=== PATIENT | male | born 1945 | race Hispanic/Latino ===

== ENCOUNTER 2017-02-16 15:03 | Inpatient (IN) | payer OTHER ==
[~2017-02-16] VITALS: Ht 152.4 cm; Wt 86.2 kg
[~2017-02-16 15:03] MED LIST: AMLODIPINE BESY10 M1 PO; AMOX-CLAV 875-1 EACH PO; BENZONATATE100 M1 PO; CARVEDILOL6.25 M1 PO; DULERA 200 MCG/13 GM INH; LEVOTHYROXINE125 MCG PO; LISINOPRIL-HCT1 EAC1 PO; LOVASTATIN40 M1 PO; METFORMIN HCL500 M4 PO; OMEPRAZOLE40 M1 PO; PREDNISONE10 M2 PO; PREDNISONE5 M1 PO; PROAIR HFA8.5 GM PO
--- NOTE | 2017-02-16 15:13 | NUR ---
EKG COMPLETED AND PT SENT BACK TO WAITING ROOM
--- NOTE | 2017-02-16 15:30 | NUR ---
RECEIVED 71 YO MALE WITH FAMILY WITH HX OF ASTHMA C/O DIFFICULTY BREATHING, STARTED YESTERDAY WITH CHEST PAIN WITH COUGHING ONLY. PT ALSO REPORTS ABDOMIN HURTS WITH COUGHING. MILD EXP WHEEZES AUSCULTATED. 02 SATS 94% ON ROOM AIR. EKG DONE PRIOR TO TRIAGE. NO ACUTE DISTRESS NOTED.
--- NOTE | 2017-02-16 15:34 | NUR ---
PT ASSIST TO RM WITH FAMILY MEMBER AT BEDSIDE. PT CHANGED INTO HOSPITAL ATTIRE. PT PLACED ON MONITOR.
--- NOTE | 2017-02-16 15:51 | ED DYSPNEA/ASTHMA COMPLAINT ---
History of Present Illness General Chief Complaint: Dyspnea (COPD, CHF, Other) Stated Complaint: SOB Source: patient Exam Limitations: no limitations Allergies Coded Allergies: No Known Allergies (02/28/16) Reconcile Medications Albuterol Sulfate (Proair Hfa) 90 MCG HFA.AER.AD 2 PUF INH PRN ASTHMA ( Reported) Albuterol Sulfate (Proventil Hfa) 90 MCG HFA.AER.AD 2 PUF INH Q4 COPD Amlodipine Besylate 10 MG TABLET 1 TAB PO DAILY HTN (Reported) Ascorbic Acid (Vitamin C) 100 MG TABLET 0.5 TAB PO DAILY SUPPLEMENT (Reported ) Aspirin (Ecotrin*) 81 MG TABLET.DR 1 TAB PO DAILY HEART/BLOOD (Reported) Azithromycin 250 MG TABLET 250 MG PO DAILY BRONCHITIS TAKE ONE TABLET ON 02/20/17 Budesonide/Formoterol Fumarate (Symbicort 160-4.5 Mcg Inhaler) 160 MCG-4.5 MCG/ ACTUATION HFA.AER.AD 2 PUF INH BID COPD Calcium Carbonate/Vitamin D3 (Calcium 500 + D Tablet) (Unknown Strength) TABLET (Unknown Dose) PO DAILY SUPPLEMENT (Reported) Carvedilol 6.25 MG TABLET 1 TAB PO BID HEART (Reported) Colesevelam Hydrochloride (Welchol) 625 MG TABLET 1 TAB PO TID CHOLESTEROL ( Reported) Ipratropium/Albuterol Sulfate (Iprat-Albut 0.5-3(2.5) MG/3 Ml) 0.5 MG-3 MG (2.5 MG BASE)/3 ML AMPUL.NEB 2.5 ML INH TID COPD Lactobacillus Acidophilus (Probiotic) 10 BILLION CELL CAPSULE 1 CAP PO DAILY PROBIOTIC (Reported) Levothyroxine Sodium 125 MCG TABLET 1 TAB PO DAILY THYROID PROBLEMS (Reported ) Lisinopril/Hydrochlorothiazide (Lisinopril-Hctz 20-25 MG Tab) 1 EACH TABLET 1 TAB PO DAILY HEART HEALTH (Reported) Lovastatin 40 MG TABLET 1 TAB PO DAILY HIGH CHOLESTEROL (Reported) Metformin HCl 500 MG TABLET 1 TAB PO BID DM (Reported) Mometasone Furoate (Nasonex) 50 MCG SPRAY.PUMP 2 SPRAY NASB PRN ALLERGIES/ NASAL CONGESTION (Reported) Mometasone/Formoterol (Dulera 100 Mcg/5 Mcg Inhaler) 100 MCG-5 MCG/ACTUATION HFA.AER.AD 2 PUF INH PRN ASTHMA (Reported) Etoile-3 Fatty Acids (Etoile-3) (Unknown Strength) CAPSULE (Unknown Dose) PO DAILY SUPPLEMENT (Reported) Omeprazole 40 MG CAPSULE. 1 TAB PO DAILY ACID REFLEX (Reported) Prednisone 20 MG TABLET 40 MG PO DAILY BRONCHITIS STARTING THIS MEDICAITON 02/20/17 TAKE TWO TABLETS BY MOUTH DAILY FOR 3 MORE DAYS THEN STOP Triage Note: RECEIVED 71 YO MALE WITH FAMILY WITH HX OF ASTHMA C/O DIFFICULTY BREATHING, STARTED YESTERDAY WITH CHEST PAIN WITH COUGHING ONLY. PT ALSO REPORTS ABDOMIN HURTS WITH COUGHING. MILD EXP WHEEZES AUSCULTATED. 02 SATS 93% ON ROOM AIR. EKG DONE PRIOR TO TRIAGE. NO ACUTE DISTRESS NOTED. Triage Nurses Notes Reviewed? yes HPI: This patient is a 71-year-old male with a past medical history including asthma who presented to the emergency department today for evaluation of difficulty breathing. The patient was accompanied by a family member who translated for him at his primary language is not Panamanian. The patient reported that since yesterday he has had worsening difficulty breathing. He reported that he has had a cough intermittently productive of sputum. He reported that when he does cough he feels pain and his sides. He denied any chest pain. Patient reported that he has had chills, but denied any fevers. The patient denied any jaw pain, arm pain, numbness or tingling in his extremities, back pain, nausea, vomiting, abdominal pain, or any other associated symptoms. This patient has been using his DULERA and pro-air inhalers without any relief of his symptoms. (DIDIER SHAY,WES) Vital Signs & Intake/Output Vital Signs & Intake/Output Vital Signs Date Time Temp Pulse Resp B/P Pulse O2 O2 Flow FiO2 Ox Delivery Rate 02/16 1804 78 14 160/90 95 Nasal 2.0L Cannula 02/16 1700 96 Nasal 2.0L Cannula 02/16 1632 94 Nasal 2.0L Cannula 02/16 1527 99.1 87 20 150/84 93 Room Air Past History Travel History Traveled to [place] past 21 day No Medical History Any Pertinent Medical History? see below for history Neurological: NONE EENT: NONE Cardiovascular: hypertension, hyperlipidemia Respiratory: asthma Gastrointestinal: NONE Hepatic: NONE Renal: NONE Musculoskeletal: NONE Psychiatric: NONE Endocrine: diabetes Blood Disorders: NONE Cancer(s): NONE History of MRSA: No History of VRE: No History of CDIFF: No Pneumonia Vaccine: 08/26/14 Influenza Vaccine: 08/26/15 Surgical History Surgical History: N Psychosocial History Who do you live with Spouse Services at Home None What is your primary language Greenlandic Tobacco Use: Never used Family History Family History, If Any: Relation not specified for: *No pertinent family history Hx Contributory? No (WES VELÁSQUEZ PA-C) Review of Systems Review of Systems Constitutional: Reports: see HPI. EENTM: Reports: no symptoms. Respiratory: Reports: see HPI. Cardiovascular: Reports: no symptoms. GI: Reports: no symptoms. Genitourinary: Reports: no symptoms. Musculoskeletal: Reports: see HPI. Skin: Reports: no symptoms. Neurological/Psychological: Reports: no symptoms. All Other Systems: Reviewed and Negative (WES VELÁSQUEZ PA-C) Physical Exam Physical Exam Respiratory: CHEST NONTENDER. qUIET RESPIRATION. nO WHEEZES, RALES, OR RHONCHI. nO STRIDOR. nO ACCESSORY MUSCLE USE. nO RESPIRATORY DISTRESS Comments: Well-developed well-nourished person in no acute distress HEENT: Normal EENT exam, moist mucous membranes PERRLA bilaterally Neck: Supple, no lymphadenopathy Back: Normal gait. Normal inspection Cardiovascular: Regular rate and rhythm with no murmurs, rubs, or gallops. No JVD or carotid bruits Abdomen: Soft, nontender, and nondistended. No rebound or guarding. No organomegaly. No peritoneal signs Extremity: No edema, no calf tenderness to palpation, normal and equal pulses. Neuro: Alert oriented x3, cranial nerves II through XII grossly intact. Skin: No appreciable rash on exposed skin, skin is warm and dry. Psych: Mood and affect is normal Core Measures ACS in differential dx? Yes Severe Sepsis Present: No Septic Shock Present: No (WES VELÁSQUEZ PA-C) Progress Differential Diagnosis: asthma, AMI, bronchitis, costochondritis, CHF, COPD, musculoskeletal pain, pericarditis, pulmonary embolism, pneumonia, unstable angina Plan of Care: Orders Procedure Date/time Status Patient Data 02/16 1832 Active B-TYPE NATRIURETIC PEP (BNP) 02/16 1607 Complete ARTERIAL BLOOD GAS (GEN) 02/16 1552 Complete TROPONIN LEVEL 02/16 1552 Complete MAGNESIUM 02/16 1552 Complete COMPREHENSIVE METABOLIC PANEL 02/16 1552 Complete CBC WITHOUT DIFFERENTIAL 02/16 1552 Complete EKG 02/16 1504 Active Laboratory Tests 02/16/17 1715: pH 7.46 H, pCO2 38, pO2 68 L, HCO3 26, ABG O2 Sat (Measured) 93.0 L, P-50 ( Temp Corrected) N, Carboxyhemoglobin 0.6 L, O2 Concentration % 2LPM, O2 Delivery Method NC, Phlebotomy Draw Site RIGHT BRACHIAL 02/16/17 1607: Anion Gap 12, Estimated GFR > 60, BUN/Creatinine Ratio 13.0, Glucose 120 H, Calcium 10.0, Magnesium 1.8, Total Bilirubin 0.9, AST 30, ALT 51, Alkaline Phosphatase 64, Troponin I < 0.01, Cem-W-Onmasepryda Pept 52.7, Total Protein 7.4, Albumin 4.7, Globulin 2.7, Albumin/Globulin Ratio 1.7, CBC w Diff NO MAN DIFF REQ, RBC 5.55, MCV 83.9, MCH 27.1, RDW 14.6 H, MPV 7.6, Gran % 68.9, Lymphocytes % 13.5 L, Monocytes % 10.4 H, Eosinophils % 6.6 H, Basophils % 0.6, Absolute Granulocytes 7.1 H, Absolute Lymphocytes 1.4, Absolute Monocytes 1.1 H, Absolute Eosinophils 0.7, Absolute Basophils 0.1, PUBS MCHC 32.3 L 02/16/17 1555: Ewn-O-Yjtycpangyx Pept Cancelled Diagnostic Imaging: Viewed by Me: Radiology Read. Discussed w/RAD: Radiology Read. CXR Impression: PATIENT: JEANNIE NICHOLSON PRESENT AGE: 71 PATIENT ACCOUNT NO: [id number] : 44 LOCATION: [facility] ORDERING PHYSICIAN: WES VELÁSQUEZ PA-C SERVICE DATE: 02/16/17 EXAM TYPE: RAD - XRY-CHEST XRAY, PA AND LATERAL EXAMINATION: XR CHEST CLINICAL INFORMATION: Pneumonia shortness of breath COMPARISON: February 2016 TECHNIQUE: 2 views of the chest were obtained. FINDINGS: No significant abnormality is noted involving the heart, lungs, mediastinum, bony thorax or soft tissues. IMPRESSION : Unremarkable examination. DICTATED BY: MARILYNN CRUZ MD DATE/TIME DICTATED:02/16/171721 HOT ROLL LAMINATOR:LENY DATE/TIME TRANSCRIBED:1721 CONFIDENTIAL, DO NOT COPY WITHOUT APPROPRIATE AUTHORIZATION. < Electronically signed in Other Vendor System> SIGNED BY: MARILYNN CRUZ MD 02/16/17 8462 Initial ED EKG: normal axis, normal intervals, SINUS TACHYCARDIA, 90 BPM, st DEPRESSIONS IN LEADS 2 AND 3 Comments: 02/16/2017 5:47:02 PM: I was at the patient's bedside for reevaluation. He is currently resting comfortably on the stretcher. He is approximately 96% on 2 L of oxygen. This patient is not on oxygen at home. He is about 93 or 92% on room air. Unremarkable chest x-ray with no evidence of small airway disease or pneumonia. No increase in white blood cell count. This patient reported that he feels slightly better after the DuoNeb treatment. We will ambulate this patient off oxygen to check his oxygen saturation. 02/16/2017 6:00:18 PM: On ambulation, this patient drops to 89% on room air. Dr. Meier evaluated this patient [id number]. He will be admitted for hypoxia. (DIDIER SHAY,WES) Departure Departure Disposition: STILL A PATIENT Condition: Stable Clinical Impression Primary Impression: Hypoxia Referrals: MULU BLANCO MD (PCP/Family) Departure Forms: Customer Survey General Discharge Information Prescriptions: Current Visit Scripts Prednisone 40 MG PO DAILY #6 TAB STARTING THIS MEDICAITON 02/20/17 TAKE TWO TABLETS BY MOUTH DAILY FOR 3 MORE DAYS THEN STOP Budesonide/Formoterol Fumarate (Symbicort 160-4.5 Mcg Inhaler) 2 PUF INH BID #1 INHAL Albuterol Sulfate (Proventil Hfa) 2 PUF INH Q4 #1 INHAL Azithromycin 250 MG PO DAILY #1 TAB TAKE ONE TABLET ON 02/20/17 Ipratropium/Albuterol Sulfate (Iprat-Albut 0.5-3(2.5) MG/3 Ml) 2.5 ML INH TID #50 VIAL Admission Note Spoke With: VALENTINA ESCOBEDO,KAYLYN Viveros Documentation of Exam: Documentation of any treatments & extenuating circumstances including Concerns Regarding Discharge (functional status, medication knowledge or non-compliance, living conditions, etc.) that warrant an admission rather than observation: [ This patient is a 71 year old male with a past medical history including asthma and diabetes who presented for shortness of breath. 93% on room air. 89% on room air with ambulation. Not on oxygen at home. This patient should be admitted to general medicine for oxygen therapy, serial breathing treatments, trend labs, pulmonology consultation, and close monitoring. Premature discharge could prove medically harmful.] (WES VELÁSQUEZ PA-C) PA/TORCH BRAZER Co-Sign Statement Statement: ED Attending supervision documentation- [x] I saw and evaluated the patient. I have also reviewed all the pertinent lab results and diagnostic results. I agree with the findings and the plan of care as documented in the PA's/TORCH BRAZER's documentation. [] I have reviewed the ED Record and agree with the PA's/TORCH BRAZER's documentation. [] Additions or exceptions (if any) to the PAs/TORCH BRAZER's note and plan are summarized below: [] (YAQUELIN AHUJA,MERCY Mazariegos) Critical Care Note Critical Care Note Critical Care Time: 30-74 min (DIDIER SHAY,WES)
--- NOTE | 2017-02-16 16:01 | NUR ---
PLACED PT ON 2L/NC PER GONZALEZ,PA SITTING UPRIGHT SATS 94%
--- NOTE | 2017-02-16 16:11 | NUR ---
LABS DRAWN AND SENT SST, LAV, BLUE, LAWSON DRAWN AND SENT TO LAB
[2017-02-16 16:18] LABS: ABSOLUTE BASOPHIL COUNT 0.1 /CUMM (0.0-0.2); ABSOLUTE EOSINOPHIL COUNT 0.7 /CUMM (0.0-0.7); ABSOLUTE GRANULOCYTE CT 7.1 /CUMM (1.4-6.5); ABSOLUTE LYMPH COUNT 1.4 /CUMM (1.2-3.4); ABSOLUTE MONOCYTE COUNT 1.1 /CUMM (0.10-0.60); BASOPHIL % 0.6 % (0.0-2.0); EOSINOPHIL % 6.6 % (0-5); GRANULOCYTE % 68.9 % (42.2-75.2); HEMATOCRIT 46.6 % (42-52); MEAN CORPUSCULAR HGB 27.1 PG (27.0-31.0); MEAN CORPUSCULAR HGB CONC 32.3 G/DL (33.0-37.0); MEAN CORPUSCULAR VOLUME 83.9 FL (80.0-94.0); MEAN PLATELET VOLUME 7.6 FL (7.4-10.4); PLATELET COUNT 258 /CUMM (130-400); RBC DISTRIBUTION WIDTH 14.6 % (11.5-14.5); RED BLOOD CELL CT 5.55 /CUMM (4.70-6.10); WHITE BLOOD CELL COUNT 10.2 /CUMM (4.8-10.8)
--- NOTE | 2017-02-16 16:30 | NUR ---
RESPIRATORY AT BEDSIDE DOINGF BREATHING TX AND ABG
[2017-02-16] MEDS ORDERED: ASPIRIN EC81 M1 PO (16:51)
[2017-02-16] MEDS ORDERED: WELCHOL625 MG PO (16:51)
[2017-02-16] MEDS ORDERED: METFORMIN HCL500 M3 PO (16:54)
[2017-02-16] MEDS ORDERED: PROAIR HFA8.5 GM INH (16:54)
[2017-02-16] MEDS ORDERED: DULERA 100 MCG/13 GM INH (16:55)
[2017-02-16] MEDS ORDERED: NASONEX17 GM NASB (16:57)
[2017-02-16] MEDS ORDERED: VITAMIN C500 M6 PO (16:58)
[2017-02-16] MEDS ORDERED: BETA CAROT10000 UNIT PO (16:58)
[2017-02-16] MEDS ORDERED: OMEGA-31000 M1 PO (16:59)
[2017-02-16] MEDS ORDERED: PROBIOTIC1 EACH PO (16:59)
[2017-02-16] MEDS ORDERED: CALCIUM 500 +1 EAC5 PO (16:59)
--- NOTE | 2017-02-16 17:27 | RADIOLOGY REPORT ---
EXAMINATION: XR CHEST CLINICAL INFORMATION: Pneumonia shortness of breath COMPARISON: February 2016 TECHNIQUE: 2 views of the chest were obtained. FINDINGS: No significant abnormality is noted involving the heart, lungs, mediastinum, bony thorax or soft tissues. IMPRESSION: Unremarkable examination.
--- NOTE | 2017-02-16 17:57 | NUR ---
AMBULATED DOWN HALLWAY ON ROOM AIR SATS STAYED 89%TO 90%, PLACED BACK ON 2 LITERS O2
--- NOTE | 2017-02-16 18:03 | NUR ---
AMBULATED DOWN NICHOLSON WITH SATS IN 89% TO 90% ON ROOM AIR
--- NOTE | 2017-02-16 19:13 | NUR ---
PT GOING TO ROOM 237.
--- NOTE | 2017-02-16 19:25 | NUR ---
REPORT GIVEN TO NURSE AND TRANSPORT CALLED
--- NOTE | 2017-02-16 20:00 | NUR ---
NURSING NOTE: PT ARRIVED TO 2NA VIA STRETCHER @ 1940. PT ALERT, CALM, AND COOPERATIVE. PRIMARILY CROATIAN SPEAKING. FAMILY @ BEDSIDE. PT ORIENTED TO STAFF, ROOM, AND CALL DINERO. ADMISSION ASSESSMENT COMPLETED. PT REMAINS ON 2L NC. RN WILL COTNINUE TO MONITOR.
--- NOTE | 2017-02-16 20:05 | PN- Att Addend ---
Attending Addendum Attending Brief Note This is a gentleman with obesity, hypertension, diabetes, prostate history suggestive of asthma with COPD, hyperlipidemia, hypothyroidism, BPH, comes into the hospital with increasing cough wheezing shortness of breath. Patient apparently was in his usual state of health and was noted to be coughing in the recent past. The patient was accompanied by a family member translated for him as he does not speak Indonesian. He does have some yellow-green sputum. He denies any chest pain. Patient did not have any chills see denied any jaw pain. Patient has been using his inhalers without any relief. In the emergency room he was noted to be slightly hypoxemic and wheezing hence he was admitted to the hospital. Past History Travel History Traveled to [place] past 21 day No Medical History Any Pertinent Medical History? see below for history Neurological: NONE EENT: NONE Cardiovascular: hypertension, hyperlipidemia Respiratory: asthma Gastrointestinal: NONE Hepatic: NONE Renal: NONE Musculoskeletal: NONE Psychiatric: NONE Endocrine: diabetes Blood Disorders: NONE Cancer(s): NONE History of MRSA: No History of VRE: No History of CDIFF: No Pneumonia Vaccine: 08/26/14 Influenza Vaccine: 08/26/15 Surgical History Surgical History: N Psychosocial History Who do you live with Spouse Services at Home None What is your primary language Slovak Tobacco Use: Never used Family History Family History, If Any: Relation not specified for: *No pertinent family history Hx Contributory? No (WES VELÁSQUEZ PA-C) Review of Systems Review of Systems Constitutional: Reports: see HPI. EENTM: Reports: no symptoms. Respiratory: Reports: see HPI. Cardiovascular: Reports: no symptoms. GI: Reports: no symptoms. Genitourinary: Reports: no symptoms. Musculoskeletal: Reports: see HPI. Skin: Reports: no symptoms. Neurological/Psychological: Reports: no symptoms. All Other Systems: Reviewed and Negative (WES VELÁSQUEZ PA-C) Physical Exam Physical Exam Respiratory: CHEST NONTENDER. qUIET RESPIRATION. nO WHEEZES, RALES, OR RHONCHI. nO STRIDOR. nO ACCESSORY MUSCLE USE. nO RESPIRATORY DISTRESS Comments: Well-developed well-nourished person in no acute distress HEENT: Normal EENT exam, moist mucous membranes PERRLA bilaterally Neck: Supple, no lymphadenopathy Back: Normal gait. Normal inspection Cardiovascular: Regular rate and rhythm with no murmurs, rubs, or gallops. No JVD or carotid bruits Abdomen: Soft, nontender, and nondistended. No rebound or guarding. No organomegaly. No peritoneal signs Extremity: No edema, no calf tenderness to palpation, normal and equal pulses. Neuro: Alert oriented x3, cranial nerves II through XII grossly intact. Skin: No appreciable rash on exposed skin, skin is warm and dry. Psych: Mood and affect is normal Current Medications Sig/Daniel Start time Last Medication Dose Route Stop Time Status Admin Albuterol Sulfate 3 ML ONCE ONE 02/16 1600 DC 02/16 INH 02/16 1601 1600 Ipratropium [place] 2.5 ML ONCE ONE 02/16 1600 DC 02/16 INH 02/16 1601 1600 Laboratory Tests 02/16 02/16 1715 1607 Blood Gas pH (7.35 - 7.45 PH) 7.46 H pCO2 (35 - 45 TORR) 38 pO2 (80 - 100 TORR) 68 L HCO3 (21 - 28 MEQ/L) 26 ABG O2 Sat (Measured) (>96.0 %) 93.0 L P-50 (Temp Corrected) N Carboxyhemoglobin (1.5 - 5.0 %) 0.6 L O2 Concentration % 2LPM O2 Delivery Method NC Chemistry Sodium (137 - 145 mmol/L) 131 L Potassium (3.5 - 5.1 mmol/L) 3.9 Chloride (98 - 107 mmol/L) 92 L Carbon Dioxide (22 - 30 mmol/L) 27 Anion Gap (5 - 16) 12 BUN (9 - 20 mg/dL) 13 Creatinine (0.7 - 1.2 mg/dL) 1.0 Estimated GFR (>60 ml/min) > 60 BUN/Creatinine Ratio (7 - 25 %) 13.0 Glucose (65 - 99 mg/dL) 120 H Calcium (8.4 - 10.2 mg/dL) 10.0 Magnesium (1.6 - 2.3 mg/dL) 1.8 Total Bilirubin (0.2 - 1.3 mg/dL) 0.9 AST (17 - 59 U/L) 30 ALT (21 - 72 U/L) 51 Alkaline Phosphatase (< 127 U/L) 64 Troponin I (<0.11 ng/ml) < 0.01 Yny-L-Pgankvjgslt Pept (<125 pg/mL) 52.7 Total Protein (6.3 - 8.2 g/dL) 7.4 Albumin (3.5 - 5.0 g/dL) 4.7 Globulin (1.9 - 4.2 gm/dL) 2.7 Albumin/Globulin Ratio (1.1 - 2.2 %) 1.7 Hematology CBC w Diff NO MAN DIFF REQ WBC (4.8 - 10.8 /CUMM) 10.2 RBC (4.70 - 6.10 /CUMM) 5.55 Hgb (14.0 - 18.0 G/DL) 15.1 Hct (42 - 52 %) 46.6 MCV (80.0 - 94.0 FL) 83.9 MCH (27.0 - 31.0 PG) 27.1 RDW (11.5 - 14.5 %) 14.6 H Plt Count (130 - 400 /CUMM) 258 MPV (7.4 - 10.4 FL) 7.6 Gran % (42.2 - 75.2 %) 68.9 Lymphocytes % (20.5 - 51.1 %) 13.5 L Monocytes % (1.7 - 9.3 %) 10.4 H Eosinophils % (0 - 5 %) 6.6 H Basophils % (0.0 - 2.0 %) 0.6 Absolute Granulocytes (1.4 - 6.5 /CUMM) 7.1 H Absolute Lymphocytes (1.2 - 3.4 /CUMM) 1.4 Absolute Monocytes (0.10 - 0.60 /CUMM) 1.1 H Absolute Eosinophils (0.0 - 0.7 /CUMM) 0.7 Absolute Basophils (0.0 - 0.2 /CUMM) 0.1 PUBS MCHC (33.0 - 37.0 G/DL) 32.3 L Miscellaneous Phlebotomy Draw Site RIGHT BRACHIAL 02/16 1555 Chemistry Mxj-O-Wanothxpdxi Pept Cancelled Vital Signs Date Time Temp Pulse Resp B/P Pulse O2 O2 Flow FiO2 Ox Delivery Rate 02/16 1804 78 14 160/90 95 Nasal 2.0L Cannula 02/16 1700 96 Nasal 2.0L Cannula 02/16 1632 94 Nasal 2.0L Cannula 02/16 1527 99.1 87 20 150/84 93 Room Air IMPRESSION This is a gentleman with multiple medical problems with hypertension hyperlipidemia diabetes hypothyroidism BPH now comes in with Cough wheezing shortness of breath suggestive of acute asthma exacerbation. Patient probably does have COPD as well. He has mild hypoxemia and minimal exertion probably related to significant pulmonary hypertension and ongoing bronchospasm Signs and symptoms suggestive of obstructive sleep apnea with active snoring at night with daytime sleepiness. Patient however is not a CO2 retainer Diabetes, hypertension, hyperlipidemia and hypothyroidism on appropriate supplementation therapy Trace edema lower extremity rule out other causes of hypoxemia. Hyponatremia which appears to be new onset we will watch. RECOMMENDATION admit him to the hospital Continue most of his outpatient medications Start him on prednisone 60 mg daily and wean down Nebulizer therapy around the clock Change lisinopril to losartan Azithromycin by mouth Patient would need an outpatient sleep study Watch his sodium Repeat chest x-ray in the next 48 hours
--- NOTE | 2017-02-16 20:06 | Admission Certification ---
Admission Certification Certification Statement - As attending physician, I certify that at the time of - admission, based on clinical presentation, severity of - symptoms, need for further diagnostic testing and - therapeutic interventions, and risk of adverse outcomes - without in-hospital treatment, in my clinical assessment, - this patient requires an acute hospital stay for a minimum - of two nights or longer. I have also considered psychsocial - factors such as support system, advanced age, financial - issues, cognitive issues, and failed out-patient treatments, - past re-admission history, safety of patient, and lack of - compliance as applicable. Specific rationale supporting this admission is: acute asthma and copd exacerbation
[2017-02-16 20:25] VITALS: BP 132/80
[2017-02-16] MEDS ORDERED: VITAMIN C100 M2 PO (20:33)
--- NOTE | 2017-02-16 20:55 | History & Physical ---
See Addendum ANDREW ESCOBEDO,NOHEMI 02/16/172053: General Information and HPI MD Statement: I have seen and personally examined JEANNIE NICHOLSON and documented this H& P. The patient is a 71 year old M who presented with a patient stated chief complaint of []. Source of Information: patient, family, EMS Exam Limitations: language barrier History of Present Illness: Patient is a 71 YO M with PMH significant for HTN, DM, Hypothyroidism, COPD, BPH came to ER today for further evaluation of shortness of breath, cold for the past 2days. He reports cold for the past 2 days with light yellow productive cough. He had significant shortness of breath this afternoon which didnt get better with nebulizers, had shakes. In addition developed abdominal pain secondary to persistent cough. No associated chest pain, fever, body aches, dizziness, lightheadedness. He was able to walk around at baseline with shortness of breath with climbing stairs. Today he developed shortness of breath with exertion. He does have active snoring with day time sleepiness. They came to emergency for further evaluation. Upon coming to ER he was found to be saturating well initially, however desatuated to 89% later and placed on 2L NC. No recent travel. He follows Dr.Schweitzer harkins PCP, for BPH. Allergies/Medications Allergies: Coded Allergies: No Known Allergies (02/28/16) Home Med list Albuterol Sulfate (Proair Hfa) 90 MCG HFA.AER.AD 2 PUF INH PRN ASTHMA ( Reported) Amlodipine Besylate 10 MG TABLET 1 TAB PO DAILY HTN (Reported) Ascorbic Acid (Vitamin C) 100 MG TABLET 0.5 TAB PO DAILY SUPPLEMENT (Reported ) Aspirin (Ecotrin*) 81 MG TABLET.DR 1 TAB PO DAILY HEART/BLOOD (Reported) Calcium Carbonate/Vitamin D3 (Calcium 500 + D Tablet) (Unknown Strength) TABLET (Unknown Dose) PO DAILY SUPPLEMENT (Reported) Carvedilol 6.25 MG TABLET 1 TAB PO BID HEART (Reported) Colesevelam Hydrochloride (Welchol) 625 MG TABLET 1 TAB PO TID CHOLESTEROL ( Reported) Lactobacillus Acidophilus (Probiotic) 10 BILLION CELL CAPSULE 1 CAP PO DAILY PROBIOTIC (Reported) Levothyroxine Sodium 125 MCG TABLET 1 TAB PO DAILY THYROID PROBLEMS (Reported ) Lisinopril/Hydrochlorothiazide (Lisinopril-Hctz 20-25 MG Tab) 1 EACH TABLET 1 TAB PO DAILY HEART HEALTH (Reported) Lovastatin 40 MG TABLET 1 TAB PO DAILY HIGH CHOLESTEROL (Reported) Metformin HCl 500 MG TABLET 1 TAB PO BID DM (Reported) Mometasone Furoate (Nasonex) 50 MCG SPRAY.PUMP 2 SPRAY NASB PRN ALLERGIES/ NASAL CONGESTION (Reported) Mometasone/Formoterol (Dulera 100 Mcg/5 Mcg Inhaler) 100 MCG-5 MCG/ACTUATION HFA.AER.AD 2 PUF INH PRN ASTHMA (Reported) Haynes-3 Fatty Acids (Haynes-3) (Unknown Strength) CAPSULE (Unknown Dose) PO DAILY SUPPLEMENT (Reported) Omeprazole 40 MG CAPSULE.DR 1 TAB PO DAILY ACID REFLEX (Reported) Compliance With Home Meds: FAIR Past History Travel History Traveled to [place] past 21 day No Medical History Blood Transfusion Hx: No Neurological: NONE EENT: NONE Cardiovascular: hypertension, hyperlipidemia Respiratory: asthma Gastrointestinal: NONE Hepatic: NONE Renal: NONE Musculoskeletal: NONE Psychiatric: NONE Endocrine: diabetes Blood Disorders: NONE Cancer(s): NONE History of MRSA: Yes History of VRE: No History of CDIFF: No Isolation History: Contact Pneumonia Vaccine: 08/26/14 Influenza Vaccine: 08/26/16 Surgical History Surgical History: none, N Past Family/Social History Family History Relations & Conditions if any Relation not specified for: *No pertinent family history Psychosocial History Where do you live? Home Who Do You Live With? spouse Services at Home: None Smoking Status: Never Smoked Functional Ability ADLs Independent: dressing, eating, toileting, bathing. Ambulation: independent IADLs Independent: shopping, housework, finances, food prep, telephone, transportation , medication admin. Review of Systems Review of Systems Constitutional: Reports: see HPI. EENTM: Reports: see HPI. Cardiovascular: Reports: see HPI. Respiratory: Reports: cough, short of breath, sputum production. Denies: orthopnea, stridor, wheezing. GI: Reports: abdominal pain, distention. Denies: diarrhea, nausea, vomiting. Genitourinary: Reports: see HPI. Musculoskeletal: Reports: see HPI. Skin: Reports: see HPI. Comments ROS negative except the above. Exam & Diagnostic Data Last 24 Hrs of Vital Signs/I&O Vital Signs Date Time Temp Pulse Resp B/P Pulse O2 O2 Flow FiO2 Ox Delivery Rate 02/17 0658 97.8 70 16 132/74 92 Nasal 2.0L Cannula 02/16 2240 98.9 77 20 130/80 95 Nasal Cannula 02/16 2210 79 136/70 02/16 203 95 Nasal 2.0L Cannula 02/16 2025 99.4 79 20 132/80 95 Nasal Cannula 02/16 1804 78 14 160/90 95 Nasal 2.0L Cannula 02/16 1700 96 Nasal 2.0L Cannula 02/16 1632 94 Nasal 2.0L Cannula 02/16 1527 99.1 87 20 150/84 93 Room Air Intake & Output 02/17 1600 02/17 0800 02/17 0000 Intake Total 200 400 Output Total Balance 200 400 Intake, Oral 200 400 Patient 86.183 kg Weight Physical Exam General Appearance Alert, Oriented X3, Cooperative Skin No Rashes, No Breakdown HEENT Atraumatic, PERRLA, EOMI Neck Supple Cardiovascular Normal S1, Normal S2, No Murmurs Lungs decreased breath sounds without any evident wheezing. Abdomen Normal Bowel Sounds, distended with tenderness Neurological Normal Gait, Normal Speech, Strength at 5/5 X4 Ext, Normal Tone Extremities No Clubbing, No Cyanosis, No Edema Vascular Normal Pulses, Pulses Symmetrical Last 24 Hrs of Labs/Rigoberto: Laboratory Tests 02/16/172149: Urine Color YEL, Urine Clarity CLEAR, Urine pH 7.0, Ur Specific [place] 1.020, Urine Protein 30 H, Urine Ketones NEG, Urine Nitrite NEG, Urine Bilirubin NEG, Urine Urobilinogen 0.2, Ur Leukocyte Esterase NEG, Ur Microscopic SEDIMENT EXAMINED, Urine Hemoglobin NEG, Urine Glucose NEG 02/16/172149: Urine Osmolality 373, Ur Random Creatinine 53.8, Ur Random Sodium 102 H, Ur Random Potassium 28.6, Fraction Sodium Excret 1.4 H 02/16/17 1715: pH 7.46 H, pCO2 38, pO2 68 L, HCO3 26, ABG O2 Sat (Measured) 93.0 L, P-50 ( Temp Corrected) N, Carboxyhemoglobin 0.6 L, O2 Concentration % 2LPM, O2 Delivery Method NC, Phlebotomy Draw Site RIGHT BRACHIAL 02/16/17 1607: Anion Gap 12, Estimated GFR > 60, BUN/Creatinine Ratio 13.0, Glucose 120 H, Serum Osmolality 275 L, Calcium 10.0, Magnesium 1.8, Total Bilirubin 0.9, AST 30, ALT 51, Alkaline Phosphatase 64, Troponin I < 0.01, Ant-J-Wpawtjmbmna Pept 52.7, Total Protein 7.4, Albumin 4.7, Globulin 2.7, Albumin/Globulin Ratio 1.7, CBC w Diff NO MAN DIFF REQ, RBC 5.55, MCV 83.9, MCH 27.1, RDW 14.6 H, MPV 7.6, Gran % 68.9, Lymphocytes % 13.5 L, Monocytes % 10.4 H, Eosinophils % 6.6 H, Basophils % 0.6, Absolute Granulocytes 7.1 H, Absolute Lymphocytes 1.4, Absolute Monocytes 1.1 H, Absolute Eosinophils 0.7, Absolute Basophils 0.1, PUBS MCHC 32.3 L 02/16/17 1555: Bot-Z-Gstgdncphdh Pept Cancelled Assessment/Plan Assessment: Patient is a 71 YO M with PMH significant for HTN, DM, Hypothyroidism, COPD came to ER today for further evaluation of shortness of breath, cold for the past 2days. ER Course VS Afebrile, HR 77, BP 130/80mmHg, on 2L NC Significant Labs Sodium of 131 with serum osmolality of 275, urine osmolality 373 Fractional excretion of sodium 1.4, random cr 53.8, random potassium - 28.6, random sodium 102. CXR Unremarkable ABG pH 7.46, pCo2 38, pO2 68 Respiratory, blood cultures, flu swab are sent Plan Admit to general medicine floor Acute bronchitis * Cold, cough with yellow sputum production X 2 days * Afebrile with normal white count * Awaiting cultures * Started on Azithromycin for 5days, Prednisone 60mg with a quick taper Obstuctiive sleep apnea * Snoring with daytime sleepiness * Needs further evaluation with sleep study Evolemic Hyponatremia * Na level of 131 with Sr Osmolality of 275/Ur osmolality 373 * FeNa 1.4, Urine random sodium is 102 --> Renal loses * hypotonic hyponatremia - Evolemic * High urinary osmolality possibly SIADH secondary to pulmonary pathology - COPD /GABBY/asthma * Possiblility of thiazide diuretics - additional component but there is no hypovolemia evident Hypertension * Started on losartan & HCTZ by discontinuing home dose of lisinopril/HCTZ * Continue his home medication amlodipine 10mg Hypothyroidism * Continue home dose of levothyroxine 112 mcg/day Diabetes Mellitus * on metformin at home * Fingersticks with low dose sliding scale * monitor closely as patient is on prednisone Hyperlipidemia * On colesevelam 625mg TID ??Coronary artery disease * On aspirin 81mg daily and coreg 6.25mg BID History of BPH * Follows * No urianry concerns, not on any medications DVT Prophylaxis * SC lovenox Code Status * Full Code As Ranked By This Provider Problem List: 1. Bronchospasm 2. Hypoxia 3. Bronchitis 4. Hyponatremia Core Measures/Miscellaneous Acute Coronary Syndrome ACS Diagnosis: No Cerebrovascular Accident CVA/TIA Diagnosis: No Congestive Heart Failure CHF Diagnosis: No Venous Thromboembolism VTE Risk Factors: Immobility, paresis No Mech VTE prophylaxis d/t: No contraindications No VTE Pharm Prophylaxis d/t: No contraindications VTE Diagnosis: No VTE Type: NONE VTE Confirmed by (Test): NONE Severe Sepsis Severe Sepsis Present: No Septic Shock Septic Shock Present: No Miscellaneous Documentation Attending Case Discussed With: MULU BLANCO MD Primary Care Physician: MULU BLANCO MD Patient sees these Specialists Level of Patient Care: General Medicine JANICEANGELA MORENO 02/16/175: Resident Review Statement Resident Statement: discussed with internet researcher Other Findings: HPI as above Assessment and plan 71-year-old man with past medical history significant for hypothyroidism, hyperlipidemia, hypertension, asthma came to emergency department for evaluation of chills, difficulty breathing and productive cough. Active Problem list 1. Difficulty breathing and productive cough most likely due to acute bronchitis 2. Hyponatremia. Sodium 131 We will admit patient to general medicine floor. Monitor vitals closely. We'll maintain oxygen saturation more than 92%. Continue TRC nebs. We will start patient on steroids and Zithromax. Follow-up blood and sputum cultures. Will do echocardiogram to look for pulmonary hypertension. Patient might need a sleep study as an outpatient to rule out obstructive sleep apnea. We will repeat sodium levels in morning. Check urine lites, serum osmolality and urine osmolality. We'll continue all his home medications. Diabetic diet. Accu- Cheks before each meal and at bedtime. Pain management pathway. Subcutaneous Lovenox for DVT prophylaxis. Patient is full code.
[2017-02-16 22:40] VITALS: BP 130/80
[2017-02-17 06:58] VITALS: BP 132/74
--- NOTE | 2017-02-17 08:37 | PN- Housestaff ---
Subjective Follow-up For: Acute Bronchitis Subjective: Patient seen and examined. He is seen lying flat in bed resting comfortably. He appears to be in no acute distress. His yi is limited, however he is able to express his concerns. He states that he throat is mildly painful with swallowing, but otherwise his breathing is comfortable with the supplemental oxygen in place. He appears to be in good spirits. Additionally he denies any fever, chills, chest pain, nausea, vomiting, diarrhea. No overnight events reported. Review of Systems Constitutional: Reports: see HPI. Objective Last 24 Hrs of Vital Signs/I&O Vital Signs Date Time Temp Pulse Resp B/P Pulse O2 O2 Flow FiO2 Ox Delivery Rate 02/17 0948 Nasal 2.0L Cannula 02/17 0853 98 Nasal 2.0L Cannula 02/17 0800 94 Nasal 2.0L Cannula 02/17 0658 97.8 70 16 132/74 92 Nasal 2.0L Cannula 02/16 2240 98.9 77 20 130/80 95 Nasal Cannula 02/16 2210 79 136/70 02/16 2032 95 Nasal 2.0L Cannula 02/16 2025 99.4 79 20 132/80 95 Nasal Cannula 02/16 1804 78 14 160/90 95 Nasal 2.0L Cannula 02/16 1700 96 Nasal 2.0L Cannula 02/16 1632 94 Nasal 2.0L Cannula 02/16 1527 99.1 87 20 150/84 93 Room Air Intake & Output 02/17 1600 02/17 0800 02/17 0000 Intake Total 200 400 Output Total Balance 200 400 Intake, Oral 200 400 Patient 86.183 kg Weight Physical Exam General Appearance: Alert, Oriented X3, Cooperative, No Acute Distress Other Physical Findings: General - well developed, well nourished obese man in no acute distress HEENT - NCAT, EOMI, PERRL, anicteric sclera CVS - S1, S2 w/o m/g/r Resp - diminished airflow in right lung field with diffuse scant expiratory wheezing GI - Soft, obese, nontender, nondistended, bowel sounds intact Neuro - Awake and Alert, CN II - XII grossly intact Ext - normal pulses, no cyanosis/clubbing/edema Current Medications: Current Medications Sig/Daniel Start time Last Medication Dose Route Stop Time Status Admin Acetaminophen 650 MG Q6P PRN 03/24 2030 AC PO Albuterol Sulfate 3 ML TID 02/17 1000 AC 02/17 INH 0853 Albuterol Sulfate 3 ML Q4H PRN 02/16 2030 DC INH Albuterol Sulfate 3 ML ONCE ONE 02/16 1600 DC 02/16 INH 02/16 1601 1600 Amlodipine Besylate 10 MG DAILY 02/17 1000 AC 02/17 PO 0826 Ascorbic Acid 50 MG DAILY 02/17 1000 CAN PO Aspirin Buffered 81 MG DAILY 02/17 1000 AC 02/17 PO 0827 Atorvastatin Calcium 40 MG DAILY 02/17 1000 AC 02/17 PO 0827 Azithromycin 250 MG DAILY 02/16 2027 AC 02/17 PO 0826 Calcium/Vitamin D 1 TAB DAILY 02/17 1000 AC 02/17 PO 0827 Carvedilol 6.25 MG BID 02/16 2200 AC 02/17 PO 0827 Colesevelam HCl 625 MG TID 02/16 2200 AC 02/17 PO 0825 Enoxaparin Sodium 40 MG DAILY 02/17 1000 AC 02/17 SC 0827 Guaifenesin 600 MG Q12 02/16 2200 AC 02/17 PO 0827 Guaifenesin 10 ML Q6P PRN 02/16 2145 AC PO Hydrochlorothiazide 25 MG DAILY 02/17 1000 AC 02/17 PO 0827 Insulin Aspart 0 TIDAC 02/17 0800 AC 02/17 SC 0828 Ipratropium [place] 2.5 ML TID 02/17 1000 AC 02/17 INH 0853 Ipratropium [place] 2.5 ML Q4 HRS NEEDED PRN 02/16 2030 DC INH Ipratropium [place] 2.5 ML ONCE ONE 02/16 1600 DC 02/16 INH 02/16 1601 1600 Lactobacillus 1 CAP DAILY 02/17 1000 AC 02/17 Acidophilus PO 0826 Levothyroxine Sodium 0.125 MG DAILY AC 02/17 0700 AC 02/17 PO 0607 Lisinopril 20 MG DAILY 02/17 1000 CAN PO Losartan Potassium 25 MG DAILY 02/17 1000 AC 02/17 PO 0827 Metformin HCl 500 MG BID 02/16 2200 DC 02/16 PO 2312 Omeprazole 40 MG DAILY AC 02/17 0700 AC 02/17 PO 0607 Patient Medication 1 UNIT ONE NR 02/16 2030 DC Teaching ED 02/16 2100 Prednisone 60 MG DAILY 02/16 2025 AC 02/17 PO 0826 Last 24 Hrs of Lab/Rigoberto Results Last 24 Hrs of Labs/Mics: Laboratory Tests 02/17/17 0705: Anion Gap 10, Estimated GFR > 60, BUN/Creatinine Ratio 13.0 02/16/17 2150: Urine Color YEL, Urine Clarity CLEAR, Urine pH 7.0, Ur Specific [place] 1.020, Urine Protein 30 H, Urine Ketones NEG, Urine Nitrite NEG, Urine Bilirubin NEG, Urine Urobilinogen 0.2, Ur Leukocyte Esterase NEG, Ur Microscopic SEDIMENT EXAMINED, Urine Hemoglobin NEG, Urine Glucose NEG 02/16/172149: Urine Osmolality 373, Ur Random Creatinine 53.8, Ur Random Sodium 102 H, Ur Random Potassium 28.6, Fraction Sodium Excret 1.4 H 02/16/17 1715: pH 7.46 H, pCO2 38, pO2 68 L, HCO3 26, ABG O2 Sat (Measured) 93.0 L, P-50 ( Temp Corrected) N, Carboxyhemoglobin 0.6 L, O2 Concentration % 2LPM, O2 Delivery Method NC, Phlebotomy Draw Site RIGHT BRACHIAL 02/16/17 1607: Anion Gap 12, Estimated GFR > 60, BUN/Creatinine Ratio 13.0, Glucose 120 H, Serum Osmolality 275 L, Calcium 10.0, Magnesium 1.8, Total Bilirubin 0.9, AST 30, ALT 51, Alkaline Phosphatase 64, Troponin I < 0.01, Sjw-E-Qldnbcioayw Pept 52.7, Total Protein 7.4, Albumin 4.7, Globulin 2.7, Albumin/Globulin Ratio 1.7, CBC w Diff NO MAN DIFF REQ, RBC 5.55, MCV 83.9, MCH 27.1, RDW 14.6 H, MPV 7.6, Gran % 68.9, Lymphocytes % 13.5 L, Monocytes % 10.4 H, Eosinophils % 6.6 H, Basophils % 0.6, Absolute Granulocytes 7.1 H, Absolute Lymphocytes 1.4, Absolute Monocytes 1.1 H, Absolute Eosinophils 0.7, Absolute Basophils 0.1, PUBS MCHC 32.3 L 02/16/17 1555: Ccv-K-Iczujyitvbk Pept Cancelled Microbiology 02/18 612 NASOPHARYN: Influenza Virus A & B Rapid Smear - COMP Assessment/Plan Assessment: Patient remains afebrile without leukocytosis while on oral prednisone and antibiotics. He has clinically improving bronchitis. He is still requiring supplemental oxygen. He is to be continue on the current medical management regimen and weaned off steroids/antibiotics. Losartan was increased to 50mg. Acute Bronchitis Patient with history of asthma seen for evaluation of dyspnea and productive cough and associated chills. Patient was saturing 92-93% on room air in triage, desatting to 89% with ambulation. -General Medicine -TRC with albuterol/ipratropium PRN -Supplemental oxygen, goal >92%, wean as tolerated -Azithromycin 500mg IV Daily -Prednisone 60mg PO Daily -Guaifenesin 10mL PO Q6H PRN - cough -Pulmonology consult -Repeat CXR on 02/18/17 -Outpatient sleep study Hyponatremia -1200cc fluid restriction -Daily BEP Hypertension -Amlodipine 10mg PO Daily -Losartan 50mg PO Daily -Carvedilol 6.25mg PO BID -Hydrochlorothiazide 25mg PO Daily Hyperlipidemia -Atorvastatin 40mg PO Daily -Welchol 625mg PO TID Diabetes Mellitus -Accuchecks TIDAC/HS -Hold oral hypoglycemics -Novolog sliding scale insulin Hypothyroidism-Levothyroxine 125mcg PO Daily GERD-Omeprazole 40mg PO Daily Pain plan- Acetaminophen Diet-Consistent Carbohydrate 2 with 1200cc fluid restriction DVT PPx-Lovenox Code Status-FULL CODE Problem List: 1. Bronchitis Pain Ratin Pain Location: None Pain Goal: Remain pain free Pain Plan: See assessment Tomorrow's Labs & Rationales: BEP - hyponatremia
--- NOTE | 2017-02-17 13:34 | PN- Pulmonary ---
Subjective HPI/Critical Care Issues: Patient seen and examined. He is seen lying flat in bed resting comfortably. He appears to be in no acute distress. His new zealander is limited, however he is able to express his concerns. He states that he throat is mildly painful with swallowing, but otherwise his breathing is comfortable with the supplemental oxygen in place. He appears to be in good spirits. Additionally he denies any fever, chills, chest pain, nausea, vomiting, diarrhea. No overnight events reported. Review of Systems Constitutional: Reports: see HPI. Objective Current Medications: Current Medications Sig/Daniel Start time Last Medication Dose Route Stop Time Status Admin Acetaminophen 650 MG Q6P PRN 02/16 2030 AC PO Albuterol Sulfate 3 ML BID 02/17 2200 AC INH Albuterol Sulfate 3 ML TID 02/17 1000 DC 02/17 INH 0853 Albuterol Sulfate 3 ML Q4H PRN 02/16 2030 DC INH Albuterol Sulfate 3 ML ONCE ONE 02/16 1600 DC 02/16 INH 02/16 1601 1600 Amlodipine Besylate 10 MG DAILY 02/17 1000 AC 02/17 PO 0826 Ascorbic Acid 50 MG DAILY 02/17 1000 CAN PO Aspirin Buffered 81 MG DAILY 02/17 1000 AC 02/17 PO 0827 Atorvastatin Calcium 40 MG DAILY 02/17 1000 AC 02/17 PO 0827 Azithromycin 250 MG DAILY 02/16 2027 AC 02/17 PO 0826 Calcium/Vitamin D 1 TAB DAILY 02/17 1000 AC 02/17 PO 0827 Carvedilol 6.25 MG BID 02/16 2200 AC 02/17 PO 0827 Colesevelam HCl 625 MG TID 02/16 2200 AC 02/17 PO 0825 Enoxaparin Sodium 40 MG DAILY 02/17 1000 AC 02/17 SC 0827 Guaifenesin 600 MG Q12 02/16 2200 AC 02/17 PO 0827 Guaifenesin 10 ML Q6P PRN 02/16 2145 AC PO Hydrochlorothiazide 25 MG DAILY 02/17 1000 AC 02/17 PO 0827 Insulin Aspart 0 TIDAC 02/17 0800 AC 02/17 SC 0828 Ipratropium [place] 2.5 ML BID 02/170 AC INH Ipratropium [place] 2.5 ML TID 02/17 1000 DC 02/17 INH 0853 Ipratropium [place] 2.5 ML Q4 HRS NEEDED PRN 02/16 2030 DC INH Ipratropium [place] 2.5 ML ONCE ONE 02/16 1600 DC 02/16 INH 02/16 1601 1600 Lactobacillus 1 CAP DAILY 02/17 1000 AC 02/17 Acidophilus PO 0826 Levothyroxine Sodium 0.125 MG DAILY AC 02/17 0700 AC 02/17 PO 0607 Lisinopril 20 MG DAILY 02/17 1000 CAN PO Losartan Potassium 25 MG DAILY 02/17 1000 AC 02/17 PO 0827 Metformin HCl 500 MG BID 02/16 2200 DC 02/16 PO 2312 Omeprazole 40 MG DAILY AC 02/17 0700 AC 02/17 PO 0607 Patient Medication 1 UNIT ONE NR 02/16 2030 DC Teaching ED 02/16 2100 Prednisone 60 MG DAILY 02/16 2025 AC 02/17 PO 0826 Vital Signs & I&O Last 24 Hrs of Vitals and I&O: Vital Signs Date Time Temp Pulse Resp B/P Pulse O2 O2 Flow FiO2 Ox Delivery Rate 02/17 0948 Nasal 2.0L Cannula 02/17 0853 98 Nasal 2.0L Cannula 02/17 0800 94 Nasal 2.0L Cannula 02/17 0658 97.8 70 16 132/74 92 Nasal 2.0L Cannula 02/16 2240 98.9 77 20 130/80 95 Nasal Cannula 02/16 2210 79 136/70 02/17 2032 95 Nasal 2.0L Cannula 02/16 2025 99.4 79 20 132/80 95 Nasal Cannula 02/16 1804 78 14 160/90 95 Nasal 2.0L Cannula 02/16 1700 96 Nasal 2.0L Cannula 02/16 1632 94 Nasal 2.0L Cannula 02/16 1527 99.1 87 20 150/84 93 Room Air Intake & Output 02/17 1600 02/17 0800 02/17 0000 Intake Total 200 400 Output Total Balance 200 400 Intake, Oral 200 400 Patient 190 lb Weight Laboratory Tests 02/17 02/16 02/16 0705 2150 2150 Chemistry Sodium (137 - 145 mmol/L) 133 L Potassium (3.5 - 5.1 mmol/L) 4.5 Chloride (98 - 107 mmol/L) 94 L Carbon Dioxide (22 - 30 mmol/L) 29 Anion Gap (5 - 16) 10 BUN (9 - 20 mg/dL) 13 Creatinine (0.7 - 1.2 mg/dL) 1.0 Estimated GFR (>60 ml/min) > 60 BUN/Creatinine Ratio (7 - 25 %) 13.0 Urines Urine Color (YEL,AMB,STR) YEL Urine Clarity (CLEAR) CLEAR Urine pH (5.0 - 8.0) 7.0 Ur Specific [place] (1.001 - 1.035) 1.020 Urine Protein (NEG,<30 MG/DL) 30 H Urine Ketones (NEG) NEG Urine Nitrite (NEG) NEG Urine Bilirubin (NEG) NEG Urine Urobilinogen (0.1 - 1.0 EU/dl) 0.2 Ur Leukocyte Esterase (NEG) NEG Ur Microscopic SEDIMENT EXAMINED Urine Hemoglobin (NEG) NEG Urine Osmolality (300 - 1000 MOSM/KG) 373 Ur Random Creatinine (mg/dL) 53.8 Ur Random Sodium (30 - 90 mmol/L) 102 H Ur Random Potassium (mmol/L) 28.6 Fraction Sodium Excret (<1% %) 1.4 H Urine Glucose (N MG/DL) NEG 02/16 02/16 1715 1607 Blood Gas pH (7.35 - 7.45 PH) 7.46 H pCO2 (35 - 45 TORR) 38 pO2 (80 - 100 TORR) 68 L HCO3 (21 - 28 MEQ/L) 26 ABG O2 Sat (Measured) (>96.0 %) 93.0 L P-50 (Temp Corrected) N Carboxyhemoglobin (1.5 - 5.0 %) 0.6 L O2 Concentration % 2LPM O2 Delivery Method NC Chemistry Sodium (137 - 145 mmol/L) 131 L Potassium (3.5 - 5.1 mmol/L) 3.9 Chloride (98 - 107 mmol/L) 92 L Carbon Dioxide (22 - 30 mmol/L) 27 Anion Gap (5 - 16) 12 BUN (9 - 20 mg/dL) 13 Creatinine (0.7 - 1.2 mg/dL) 1.0 Estimated GFR (>60 ml/min) > 60 BUN/Creatinine Ratio (7 - 25 %) 13.0 Glucose (65 - 99 mg/dL) 120 H Serum Osmolality (285 - 295 MOSM/KG) 275 L Calcium (8.4 - 10.2 mg/dL) 10.0 Magnesium (1.6 - 2.3 mg/dL) 1.8 Total Bilirubin (0.2 - 1.3 mg/dL) 0.9 AST (17 - 59 U/L) 30 ALT (21 - 72 U/L) 51 Alkaline Phosphatase (< 127 U/L) 64 Troponin I (<0.11 ng/ml) < 0.01 [id number] Pept (<125 pg/mL) 52.7 Total Protein (6.3 - 8.2 g/dL) 7.4 Albumin (3.5 - 5.0 g/dL) 4.7 Globulin (1.9 - 4.2 gm/dL) 2.7 Albumin/Globulin Ratio (1.1 - 2.2 %) 1.7 Hematology CBC w Diff NO MAN DIFF REQ WBC (4.8 - 10.8 /CUMM) 10.2 RBC (4.70 - 6.10 /CUMM) 5.55 Hgb (14.0 - 18.0 G/DL) 15.1 Hct (42 - 52 %) 46.6 MCV (80.0 - 94.0 FL) 83.9 MCH (27.0 - 31.0 PG) 27.1 RDW (11.5 - 14.5 %) 14.6 H Plt Count (130 - 400 /CUMM) 258 MPV (7.4 - 10.4 FL) 7.6 Gran % (42.2 - 75.2 %) 68.9 Lymphocytes % (20.5 - 51.1 %) 13.5 L Monocytes % (1.7 - 9.3 %) 10.4 H Eosinophils % (0 - 5 %) 6.6 H Basophils % (0.0 - 2.0 %) 0.6 Absolute Granulocytes (1.4 - 6.5 /CUMM) 7.1 H Absolute Lymphocytes (1.2 - 3.4 /CUMM) 1.4 Absolute Monocytes (0.10 - 0.60 /CUMM) 1.1 H Absolute Eosinophils (0.0 - 0.7 /CUMM) 0.7 Absolute Basophils (0.0 - 0.2 /CUMM) 0.1 PUBS MCHC (33.0 - 37.0 G/DL) 32.3 L Miscellaneous Phlebotomy Draw Site RIGHT BRACHIAL 02/16 1555 Chemistry [id number] Pept Cancelled Microbiology Date/Time Procedure - Status Source Growth 02/17 0612 Influenza Virus A & B Rapid Smear - COMP NASOPHARYN Impression/Plan Impression/Plan Impression/Plan: Physical Exam Respiratory: mild wheezing with occ crackles Well-developed well-nourished person in no acute distress HEENT: Normal EENT exam, moist mucous membranes PERRLA bilaterally Neck: Supple, no lymphadenopathy Back: Normal gait. Normal inspection Cardiovascular: Regular rate and rhythm with no murmurs, rubs, or gallops. No JVD or carotid bruits Abdomen: Soft, nontender, and nondistended. No rebound or guarding. No organomegaly. No peritoneal signs Extremity: No edema, no calf tenderness to palpation, normal and equal pulses. Neuro: Alert oriented x3, cranial nerves II through XII grossly intact. Skin: No appreciable rash on exposed skin, skin is warm and dry. Psych: Mood and affect is normal IMPRESSION This is a gentleman with multiple medical problems with hypertension hyperlipidemia diabetes hypothyroidism BPH now comes in with * Cough wheezing shortness of breath suggestive of acute asthma exacerbation. Patient probably does have COPD as well. * He has mild hypoxemia on minimal exertion probably related to significant pulmonary hypertension and ongoing bronchospasm * Signs and symptoms suggestive of obstructive sleep apnea with active snoring at night with daytime sleepiness. Patient however is not a CO2 retainer * Diabetes, hypertension, hyperlipidemia and hypothyroidism on appropriate supplementation therapy * Trace edema lower extremity rule out other causes of hypoxemia. * Hyponatremia which appears to be new onset RECOMMENDATION Continue most of his outpatient medications Prednisone 60 mg daily and wean down Nebulizer therapy around the clock Losartan can be increased Azithromycin by mouth Patient would need an outpatient sleep study Watch his sodium fluid restriction Repeat chest x-ray in the next 48 hours
[2017-02-17 14:50] VITALS: BP 130/80
[2017-02-17 22:00] VITALS: BP 128/80
--- NOTE | 2017-02-18 06:34 | NUR ---
NURSING NOTE: PT SHOWING SOME FACIEL SWELLING, PARTICULARLY ON THE R SIDE. PER PT, DOES NOT FEEL ANY DIFFERENT. NO ITCHING, NO IRRITATION. PT BELIEVES IT IS FROM SLEEPING ON HIS R SIDE. RN WILL MONITOR.
[2017-02-18 06:36] VITALS: BP 130/80
--- NOTE | 2017-02-18 08:53 | PN- Housestaff ---
Subjective Follow-up For: Acute bronchitis Subjective: Patient seen and examined. He is seen sitting upright in bed resting comfortably. He appears to be in mild respiratory distress. He states that he woke up this morning short of breath and mild facial swelling, he appears anxious and is requesting a respiratory treatment. Otherwise he feels fine and has no new subjective complaints. Otherwise he denies any chest pain, cough, nausea, vomiting. No overnight events reported. Review of Systems Constitutional: Reports: see HPI. Objective Last 24 Hrs of Vital Signs/I&O Vital Signs Date Time Temp Pulse Resp B/P Pulse O2 O2 Flow FiO2 Ox Delivery Rate 02/18 0940 130/80 02/18 0923 94 Nasal 2.0L Cannula 02/18 0800 92 Nasal 2.0L Cannula 02/18 0636 98.2 64 20 130/80 97 Nasal Cannula 02/18 0000 94 Nasal 2.0L Cannula 02/17 2200 98.0 94 18 128/80 94 Nasal 2.0L Cannula 02/17 2128 98.0 94 18 128/80 02/17 1910 96 Nasal 2.0L Cannula 02/17 1600 Nasal 2.0L Cannula 02/17 1450 98.0 83 24 130/80 95 Intake & Output 02/18 1600 02/18 0800 02/18 0000 Intake Total 200 1200 Output Total Balance 200 1200 Intake, Oral 200 1200 Physical Exam General Appearance: Alert, Oriented X3, Cooperative, No Acute Distress Other Physical Findings: General - well developed, well nourished obese man in no acute distress HEENT - NCAT, EOMI, PERRL, anicteric sclera CVS - S1, S2 w/o m/g/r Resp -extensive wheezing in all lung avitia without rhonchi or crackles GI - Soft, obese, nontender, nondistended, bowel sounds intact Neuro - Awake and Alert, CN II - XII grossly intact Ext - normal pulses, no cyanosis/clubbing/edema Current Medications: Current Medications Sig/Daniel Start time Last Medication Dose Route Stop Time Status Admin Acetaminophen 650 MG Q6P PRN 02/16 2030 AC PO Albuterol Sulfate 3 ML BID 02/17 2200 AC 02/18 INH 0922 Amlodipine Besylate 10 MG DAILY 02/17 1000 AC 02/18 PO 0940 Aspirin Buffered 81 MG DAILY 02/17 1000 AC 02/18 PO 0940 Atorvastatin Calcium 40 MG DAILY 02/17 1000 AC 02/18 PO 0940 Azithromycin 250 MG DAILY 02/16 2027 AC 02/18 PO 0940 Calcium/Vitamin D 1 TAB DAILY 02/17 1000 AC 02/18 PO 0941 Carvedilol 6.25 MG BID 02/16 2200 AC 02/18 PO 0941 Colesevelam HCl 625 MG TID 02/16 2200 AC 02/18 PO 0940 Enoxaparin Sodium 40 MG DAILY 02/17 1000 AC 02/18 SC 0941 Guaifenesin 600 MG Q12 02/16 2200 AC 02/18 PO 0940 Guaifenesin 10 ML Q6P PRN 02/16 2145 AC PO Hydrochlorothiazide 25 MG DAILY 02/17 1000 AC 02/18 PO 0940 Insulin Aspart 0 TIDAC 02/17 0800 AC 02/17 SC 1808 Ipratropium [place] 2.5 ML BID 02/17 2200 AC 02/18 INH 0922 Lactobacillus 1 CAP DAILY 02/17 1000 AC 02/18 Acidophilus PO 0940 Levothyroxine Sodium 0.125 MG DAILY AC 02/17 0700 AC 02/18 PO 0529 Losartan Potassium 50 MG DAILY 02/18 1000 AC 02/18 PO 0941 Losartan Potassium 25 MG DAILY 02/17 1000 DC 02/17 PO 0827 Omeprazole 40 MG DAILY AC 02/17 07 AC 02/18 PO 0529 Patient Medication 1 UNIT ONE NR 02/17 1600 DC Teaching ED 02/17 1630 Prednisone 50 MG DAILY 02/19 1000 AC PO Prednisone 60 MG DAILY 02/16 2025 DC 02/18 PO 0940 Assessment/Plan Assessment: Patient continues to remain afebrile without leukocytosis while on oral prednisone and antibiotics. He is still requiring 2.0 L of supplemental oxygen. This morning he developed mild acute respiratory distress with extensive wheezing for which she was given a respiratory treatment and had clinical improvement of his symptoms. Repeat chest x-ray today demonstrated subsegmental atelectasis of the left lateral base and otherwise clear lungs. Acute Bronchitis / Patient with history of asthma seen for evaluation of dyspnea and productive cough and associated chills. Patient was saturing 92-93% on room air in triage, desatting to 89% with ambulation. -General Medicine -TRC with albuterol/ipratropium PRN -Supplemental oxygen, goal >92%, wean as tolerated -Azithromycin converted to oral formulation -Prednisone 50mg PO Daily -Guaifenesin 10mL PO Q6H PRN - cough -Pulmonology consult -Repeat CXR on 02/18/17 -Outpatient sleep study Hyponatremia -1200cc fluid restriction -Daily BEP Hypertension -Amlodipine 10mg PO Daily -Losartan 50mg PO Daily -Carvedilol 6.25mg PO BID -Hydrochlorothiazide 25mg PO Daily Hyperlipidemia -Atorvastatin 40mg PO Daily -W[place]chol 625mg PO TID Diabetes Mellitus -Accuchecks TIDAC/HS -Hold oral hypoglycemics -Novolog sliding scale insulin Hypothyroidism-Levothyroxine 125mcg PO Daily GERD-Omeprazole 40mg PO Daily Pain plan- Acetaminophen Diet-Consistent Carbohydrate 2 with 1200cc fluid restriction DVT PPx-Lovenox Code Status-FULL CODE Problem List: 1. Bronchitis Pain Ratin Pain Location: None Pain Goal: Remain pain free Pain Plan: See assessment Tomorrow's Labs & Rationales: CBC-bronchitis Serum chemistries-hyponatremia
--- NOTE | 2017-02-18 09:33 | RADIOLOGY REPORT ---
EXAMINATION: XR PORTABLE CHEST CLINICAL INFORMATION: Shortness of breath. Possible pneumonia. COMPARISON: Upright AP view of the chest is performed. TECHNIQUE: Portable AP view of the chest was obtained. FINDINGS: There is subsegmental atelectasis left lateral base. Lungs otherwise clear. The vascularity is normal. No definite effusion. Cardiac and hilar mediastinal contours and bony structures are stable. IMPRESSION: Subsegmental atelectasis left lateral base. Lungs otherwise clear.
--- NOTE | 2017-02-18 12:33 | PN- Pulmonary ---
Subjective HPI/Critical Care Issues: Patient remains afebrile without leukocytosis while on oral prednisone and antibiotics. He has clinically improving bronchitis. He is still requiring supplemental oxygen. He is to be continue on the current medical management regimen and weaned off steroids/antibiotics. Losartan was increased to 50mg. Review of Systems: Eyes no blurred or double vision Ears no deafness or ringing Nose and throat no recurrent sinusitis Lungs per history of present illness Heart per history of present illness Abdomen no nausea vomiting Musculoskeletal occasional muscle and joint pains Psych no anxiety or depression Neuro without recurrent headache or seizures Endocrine no heat or cold intolerance Objective Current Medications: Current Medications Sig/Daniel Start time Last Medication Dose Route Stop Time Status Admin Acetaminophen 650 MG Q6P PRN 02/16 2030 AC PO Albuterol Sulfate 3 ML BID 02/17 2200 AC 02/18 INH 0922 Albuterol Sulfate 3 ML TID 02/17 1000 DC 02/17 INH 0853 Amlodipine Besylate 10 MG DAILY 02/17 1000 AC 02/18 PO 0940 Aspirin Buffered 81 MG DAILY 02/17 1000 AC 02/18 PO 0940 Atorvastatin Calcium 40 MG DAILY 02/17 1000 AC 02/18 PO 0940 Azithromycin 250 MG DAILY 02/16 2027 AC 02/18 PO 0940 Calcium/Vitamin D 1 TAB DAILY 02/17 1000 AC 02/18 PO 0941 Carvedilol 6.25 MG BID 02/16 2200 AC 02/18 PO 0941 Colesevelam HCl 625 MG TID 02/16 2200 AC 02/18 PO 0940 Enoxaparin Sodium 40 MG DAILY 02/17 1000 AC 02/18 SC 0941 Guaifenesin 600 MG Q12 02/16 2200 AC 02/18 PO 0940 Guaifenesin 10 ML Q6P PRN 02/16 2145 AC PO Hydrochlorothiazide 25 MG DAILY 02/17 1000 AC 02/18 PO 0940 Insulin Aspart 0 TIDAC 02/17 08 AC 02/17 SC 1808 Ipratropium [place] 2.5 ML BID 02/17 2200 AC 02/18 INH 0922 Ipratropium [place] 2.5 ML TID 02/17 1000 DC 02/17 INH 0853 Lactobacillus 1 CAP DAILY 02/17 1000 AC 02/18 Acidophilus PO 0940 Levothyroxine Sodium 0.125 MG DAILY AC 02/17 0700 AC 02/18 PO 0529 Losartan Potassium 50 MG DAILY 02/18 1000 AC 02/18 PO 0941 Losartan Potassium 25 MG DAILY 02/17 1000 DC 02/17 PO 0827 Omeprazole 40 MG DAILY AC 02/17 0700 AC 02/18 PO 0529 Patient Medication 1 UNIT ONE NR 02/[address] Teaching ED 02/17 1630 Prednisone 60 MG DAILY 02/16 2025 AC 02/18 PO 0940 Laboratory Tests 02/17 02/16 02/16 07 2150 2150 Chemistry Sodium (137 - 145 mmol/L) 133 L Potassium (3.5 - 5.1 mmol/L) 4.5 Chloride (98 - 107 mmol/L) 94 L Carbon Dioxide (22 - 30 mmol/L) 29 Anion Gap (5 - 16) 10 BUN (9 - 20 mg/dL) 13 Creatinine (0.7 - 1.2 mg/dL) 1.0 Estimated GFR (>60 ml/min) > 60 BUN/Creatinine Ratio (7 - 25 %) 13.0 Urines Urine Color (YEL,AMB,STR) YEL Urine Clarity (CLEAR) CLEAR Urine pH (5.0 - 8.0) 7.0 Ur Specific [place] (1.001 - 1.035) 1.020 Urine Protein (NEG,<30 MG/DL) 30 H Urine Ketones (NEG) NEG Urine Nitrite (NEG) NEG Urine Bilirubin (NEG) NEG Urine Urobilinogen (0.1 - 1.0 EU/dl) 0.2 Ur Leukocyte Esterase (NEG) NEG Ur Microscopic SEDIMENT EXAMINED Urine Hemoglobin (NEG) NEG Urine Osmolality (300 - 1000 MOSM/KG) 373 Ur Random Creatinine (mg/dL) 53.8 Ur Random Sodium (30 - 90 mmol/L) 102 H Ur Random Potassium (mmol/L) 28.6 Fraction Sodium Excret (<1% %) 1.4 H Urine Glucose (N MG/DL) NEG 02/16 02/16 1715 1607 Blood Gas pH (7.35 - 7.45 PH) 7.46 H pCO2 (35 - 45 TORR) 38 pO2 (80 - 100 TORR) 68 L HCO3 (21 - 28 MEQ/L) 26 ABG O2 Sat (Measured) (>96.0 %) 93.0 L P-50 (Temp Corrected) N Carboxyhemoglobin (1.5 - 5.0 %) 0.6 L O2 Concentration % 2LPM O2 Delivery Method NC Chemistry Sodium (137 - 145 mmol/L) 131 L Potassium (3.5 - 5.1 mmol/L) 3.9 Chloride (98 - 107 mmol/L) 92 L Carbon Dioxide (22 - 30 mmol/L) 27 Anion Gap (5 - 16) 12 BUN (9 - 20 mg/dL) 13 Creatinine (0.7 - 1.2 mg/dL) 1.0 Estimated GFR (>60 ml/min) > 60 BUN/Creatinine Ratio (7 - 25 %) 13.0 Glucose (65 - 99 mg/dL) 120 H Serum Osmolality (285 - 295 MOSM/KG) 275 L Calcium (8.4 - 10.2 mg/dL) 10.0 Magnesium (1.6 - 2.3 mg/dL) 1.8 Total Bilirubin (0.2 - 1.3 mg/dL) 0.9 AST (17 - 59 U/L) 30 ALT (21 - 72 U/L) 51 Alkaline Phosphatase (< 127 U/L) 64 Troponin I (<0.11 ng/ml) < 0.01 [id number] Pept (<125 pg/mL) 52.7 Total Protein (6.3 - 8.2 g/dL) 7.4 Albumin (3.5 - 5.0 g/dL) 4.7 Globulin (1.9 - 4.2 gm/dL) 2.7 Albumin/Globulin Ratio (1.1 - 2.2 %) 1.7 Hematology CBC w Diff NO MAN DIFF REQ WBC (4.8 - 10.8 /CUMM) 10.2 RBC (4.70 - 6.10 /CUMM) 5.55 Hgb (14.0 - 18.0 G/DL) 15.1 Hct (42 - 52 %) 46.6 MCV (80.0 - 94.0 FL) 83.9 MCH (27.0 - 31.0 PG) 27.1 RDW (11.5 - 14.5 %) 14.6 H Plt Count (130 - 400 /CUMM) 258 MPV (7.4 - 10.4 FL) 7.6 Gran % (42.2 - 75.2 %) 68.9 Lymphocytes % (20.5 - 51.1 %) 13.5 L Monocytes % (1.7 - 9.3 %) 10.4 H Eosinophils % (0 - 5 %) 6.6 H Basophils % (0.0 - 2.0 %) 0.6 Absolute Granulocytes (1.4 - 6.5 /CUMM) 7.1 H Absolute Lymphocytes (1.2 - 3.4 /CUMM) 1.4 Absolute Monocytes (0.10 - 0.60 /CUMM) 1.1 H Absolute Eosinophils (0.0 - 0.7 /CUMM) 0.7 Absolute Basophils (0.0 - 0.2 /CUMM) 0.1 PUBS MCHC (33.0 - 37.0 G/DL) 32.3 L Miscellaneous Phlebotomy Draw Site RIGHT BRACHIAL 02/16 1555 Chemistry [id number] Pept Cancelled Microbiology Date/Time Procedure - Status Source Growth 02/17 06 Influenza Virus A & B Rapid Smear - COMP NASOPHARYN Vital Signs & I&O Last 24 Hrs of Vitals and I&O: Vital Signs Date Time Temp Pulse Resp B/P Pulse O2 O2 Flow FiO2 Ox Delivery Rate 02/18 0940 130/80 02/18 0923 94 Nasal 2.0L Cannula 02/18 0800 92 Nasal 2.0L Cannula 02/18 0636 98.2 64 20 130/80 97 Nasal Cannula 02/18 0000 94 Nasal 2.0L Cannula 02/17 2200 98.0 94 18 128/80 94 Nasal 2.0L Cannula 02/17 2128 98.0 94 18 128/80 02/17 1910 96 Nasal 2.0L Cannula 02/17 1600 Nasal 2.0L Cannula 02/17 1450 98.0 83 24 130/80 95 Intake & Output 02/18 1600 02/18 0800 02/18 0000 Intake Total 200 1200 Output Total Balance 200 1200 Intake, Oral 200 1200 Impression/Plan Impression/Plan Impression/Plan: Physical Exam Respiratory: mild wheezing with occ crackles Well-developed well-nourished person in no acute distress HEENT: Normal EENT exam, moist mucous membranes PERRLA bilaterally Neck: Supple, no lymphadenopathy Back: Normal gait. Normal inspection Cardiovascular: Regular rate and rhythm with no murmurs, rubs, or gallops. No JVD or carotid bruits Abdomen: Soft, nontender, and nondistended. No rebound or guarding. No organomegaly. No peritoneal signs Extremity: No edema, no calf tenderness to palpation, normal and equal pulses. Neuro: Alert oriented x3, cranial nerves II through XII grossly intact. Skin: No appreciable rash on exposed skin, skin is warm and dry. Psych: Mood and affect is normal IMPRESSION This is a gentleman with multiple medical problems with hypertension hyperlipidemia diabetes hypothyroidism BPH now comes in with * Cough wheezing shortness of breath suggestive of acute asthma exacerbation. Patient probably does have COPD as well. * He has mild hypoxemia on minimal exertion probably related to significant pulmonary hypertension and ongoing bronchospasm, with atx * Signs and symptoms suggestive of obstructive sleep apnea with active snoring at night with daytime sleepiness. Patient however is not a CO2 retainer * Diabetes, hypertension, hyperlipidemia and hypothyroidism on appropriate supplementation therapy * Trace edema lower extremity rule out other causes of hypoxemia. * Hyponatremia which appears to be new onset RECOMMENDATION Continue most of his outpatient medications Prednisone 50 mg daily and wean down Nebulizer therapy around the clock Azithromycin by mouth Patient would need an outpatient sleep study Check sodium in am Repeat chest x-ray in the next 48 hours WIll wean off oxygen if heather, and pt would need a nebulizer machine upon dc with prob oxygen
[2017-02-18 15:19] VITALS: BP 134/78
[2017-02-18 23:34] VITALS: BP 118/70
[2017-02-19 06:00] VITALS: BP 128/70
--- NOTE | 2017-02-19 07:40 | PN- Housestaff ---
Subjective Follow-up For: Acute Bronchitis Subjective: Patient seen and examined. He is seen sitting upright in bed resting comfortably. He appears to be in no acute distress. He reports feeling much better and denies any shortness of breath. He does admit to a persistent productive cough of yellow spututm. Additionally he denies any fever, chills, chest pain, worsening shortness of breath, nausea, vomiting, diarrhea. No overnight events reported. Review of Systems Constitutional: Reports: see HPI. Objective Last 24 Hrs of Vital Signs/I&O Vital Signs Date Time Temp Pulse Resp B/P Pulse O2 O2 Flow FiO2 Ox Delivery Rate 02/19 0938 73 128/70 02/19 0938 73 128/70 02/19 0937 73 128/70 02/19 0915 97 Nasal 1.0L Cannula 02/19 0800 97 Nasal 1.0L Cannula 02/19 0600 98.1 73 20 128/70 95 Nasal 2.0L Cannula 02/19 0000 Nasal 2.0L Cannula 02/18 2334 98.7 84 20 118/70 94 Nasal 2.0L Cannula 02/18 2152 84 118/70 02/18 2105 96 Nasal 2.0L Cannula 02/18 1519 99.0 66 20 134/78 93 Intake & Output 02/19 1600 02/19 0800 02/19 0000 Intake Total 360 250 Output Total Balance 360 250 Intake, IV 10 Intake, Oral 360 240 Physical Exam General Appearance: Alert, Oriented X3, Cooperative, No Acute Distress Other Physical Findings: General - well developed, well nourished obese man in no acute distress HEENT - NCAT, EOMI, PERRL, anicteric sclera CVS - S1, S2 w/o m/g/r Resp -scant wheezing heard in bibasilar lung avitia, no crackles GI - Soft, obese, nontender, nondistended, bowel sounds intact Neuro - Awake and Alert, CN II - XII grossly intact Ext - normal pulses, no cyanosis/clubbing/edema Current Medications: Current Medications Sig/Daniel Start time Last Medication Dose Route Stop Time Status Admin Acetaminophen 650 MG Q6P PRN 02/16 2030 AC PO Albuterol Sulfate 3 ML BID 02/17 2200 AC 02/19 INH 0914 Amlodipine Besylate 10 MG DAILY 02/17 1000 AC 02/19 PO 0937 Aspirin Buffered 81 MG DAILY 02/17 1000 AC 02/19 PO 0937 Atorvastatin Calcium 40 MG DAILY 02/17 1000 AC 02/19 PO 0937 Azithromycin 250 MG DAILY 02/167 AC 02/19 PO 0936 Calcium/Vitamin D 1 TAB DAILY 02/17 1000 AC 02/19 PO 0939 Carvedilol 6.25 MG BID 02/16 2200 AC 02/19 PO 0938 Colesevelam HCl 625 MG TID 02/16 2200 AC 02/19 PO 0939 Docusate Sodium 100 MG DAILY 02/19 1000 AC 02/19 PO 0938 Enoxaparin Sodium 40 MG DAILY 02/17 1000 AC 02/19 SC 0935 Guaifenesin 600 MG Q12 02/16 2200 AC 02/19 PO 0940 Guaifenesin 10 ML Q6P PRN 02/16 2145 AC PO Hydrochlorothiazide 25 MG DAILY 02/17 1000 AC 02/19 PO 0937 Insulin Aspart 0 TIDAC 02/17 0800 AC 02/18 SC 1733 Ipratropium [place] 2.5 ML BID 02/17 2200 AC 02/19 INH 0914 Lactobacillus 1 CAP DAILY 02/17 1000 AC 02/19 Acidophilus PO 0936 Levothyroxine Sodium 0.125 MG DAILY AC 02/17 0700 AC 02/19 PO 0601 Losartan Potassium 50 MG DAILY 02/18 1000 AC 02/19 PO 0938 Omeprazole 40 MG DAILY AC 02/17 0700 AC 02/19 PO 0602 Polyethylene Glycol 17 GM DAILY 02/19 1000 AC 02/19 PO 0941 Prednisone 50 MG DAILY 02/19 1000 AC 02/19 PO 0939 Senna/Docusate Sodium 2 TAB DAILY 02/19 1000 AC 02/19 PO 0940 Last 24 Hrs of Lab/Rigoberto Results Last 24 Hrs of Labs/Mics: Laboratory Tests 02/19/17 0610: Anion Gap 7, Estimated GFR > 60, BUN/Creatinine Ratio 25.0 Assessment/Plan Assessment: Patient appear swell and no longer is complaining of any respiratory distress. He is saturating 92% on room air during ambulation. He does however admit to a persistent productive cough of yellow sputum. Patient is to be discharged to home today with one more tablet of Azithromycin to complete a 5 day total antibiotic course and a prednisone taper. He is to follow up with his primary care provider after discharge. Patient will require a nebulizer machine and require nebulizer inhalation solution upon discharge. Acute Bronchitis Patient with history of asthma seen for evaluation of dyspnea and productive cough and associated chills. Patient was saturing 92-93% on room air in triage, desatting to 89% with ambulation. -General Medicine -TRC with albuterol/ipratropium PRN -Supplemental oxygen, goal >92%, wean as tolerated -Azithromycin converted to oral formulation -Prednisone 50mg PO Daily -Guaifenesin 10mL PO Q6H PRN - cough -Pulmonology consult -Repeat CXR on 02/18/17 -Outpatient sleep study Hyponatremia -1200cc fluid restriction -Daily BEP Hypertension -Amlodipine 10mg PO Daily -Losartan 50mg PO Daily -Carvedilol 6.25mg PO BID -Hydrochlorothiazide 25mg PO Daily Hyperlipidemia -Atorvastatin 40mg PO Daily -Welchol 625mg PO TID Diabetes Mellitus -Accuchecks TIDAC/HS -Hold oral hypoglycemics -Novolog sliding scale insulin Hypothyroidism-Levothyroxine 125mcg PO Daily GERD-Omeprazole 40mg PO Daily Pain plan- Acetaminophen Diet-Consistent Carbohydrate 2 with 1200cc fluid restriction DVT PPx-Lovenox Code Status-FULL CODE Problem List: 1. Bronchitis Pain Ratin Pain Location: None Pain Goal: Remain pain free Pain Plan: See assessment Tomorrow's Labs & Rationales: None
--- NOTE | 2017-02-19 10:07 | NUR ---
PT ON RA SITTING AT BEDSIDE O2 @ 93%, AMBULATED PT ON RA AROUND THE UNIT- O2 @ 92%. NOTIFIED
--- NOTE | 2017-02-19 13:31 | Patient Discharge Instructions ---
Discharge Instructions General Discharge Information Special Instructions: Take prednisone and azithromycin as directed. Use your nebulizer machine with duoneb inhalation solution three times a day. Start Taking symbicort and proventil as directed. Follow up with your primary care provider within two weeks of discharge. Acute Coronary Syndrome Inclusion Criteria At DC or during hospital stay patient has or had the following: ACS DIAGNOSIS No Discharge Core Measures Meds if any: Prescribed or Continued at Discharge Meds if any: NOT Prescribed or Continued at Discharge Congestive Heart Failure Inclusion Criteria At DC or during hospital stay patient has or had the following: CHF DIAGNOSIS No Discharge Core Measures Meds if any: Prescribed or Continued at Discharge Meds if any: NOT Prescribed or Continued at Discharge Cerebrovascular accident Inclusion Criteria At DC or during hospital stay patient has or had the following: CVA/TIA Diagnosis No Discharge Core Measures Meds if any: Prescribed or Continued at Discharge Meds if any: NOT Prescribed or Continued at Discharge Venous thromboembolism Inclusion Criteria VTE Diagnosis No VTE Type NONE VTE Confirmed by (Test) NONE Discharge Core Measures - Per Current guidelines, there needs to be overlap - treatment for the first 5 days of Warfarin therapy. - If discharged on Warfarin prior to 5 days of - overlap therapy, the patient will need to be - assessed for post discharge needs including - *Post discharge parental anticoagulation - *Warfarin and/or parental anticoagulation education - *Follow up date to check INR post discharge At least 5 days overlap therapy as Inpatient No Meds if any: Prescribed or Continued at Discharge Note: Overlap Therapy is Warfarin and Anticoagulant Meds if any: NOT Prescribed or Continued at Discharge
--- NOTE | 2017-02-19 13:55 | PN- Pulmonary ---
Subjective HPI/Critical Care Issues: Doing better Afebrile No cough no wheezing no shortness of breath Now off oxygen Objective Current Medications: Current Medications Sig/Daniel Start time Last Medication Dose Route Stop Time Status Admin Acetaminophen 650 MG Q6P PRN 02/16 2030 AC PO Albuterol Sulfate 3 ML BID 02/17 2200 AC 02/19 INH 0914 Amlodipine Besylate 10 MG DAILY 02/17 1000 AC 02/19 PO 0937 Aspirin Buffered 81 MG DAILY 02/17 1000 AC 02/19 PO 0937 Atorvastatin Calcium 40 MG DAILY 02/17 1000 AC 02/19 PO 0937 Azithromycin 250 MG DAILY 02/167 AC 02/19 PO 0936 Calcium/Vitamin D 1 TAB DAILY 02/17 1000 AC 02/19 PO 0939 Carvedilol 6.25 MG BID 02/16 2200 AC 02/19 PO 0938 Colesevelam HCl 625 MG TID 02/16 2200 AC 02/19 PO 0939 Docusate Sodium 100 MG DAILY 02/19 1000 AC 02/19 PO 0938 Enoxaparin Sodium 40 MG DAILY 02/17 1000 AC 02/19 SC 0935 Guaifenesin 600 MG Q12 02/16 2200 AC 02/19 PO 0940 Guaifenesin 10 ML Q6P PRN 02/16 2145 AC PO Hydrochlorothiazide 25 MG DAILY 02/17 1000 AC 02/19 PO 0937 Insulin Aspart 0 TIDAC 02/17 0800 AC 02/18 SC 1733 Ipratropium [place] 2.5 ML BID 02/17 2200 AC 02/19 INH 0914 Lactobacillus 1 CAP DAILY 02/17 1000 AC 02/19 Acidophilus PO 0936 Levothyroxine Sodium 0.125 MG DAILY AC 02/17 0700 AC 02/19 PO 0601 Losartan Potassium 50 MG DAILY 02/18 1000 AC 02/19 PO 0938 Omeprazole 40 MG DAILY AC 02/17 0700 AC 02/19 PO 0602 Polyethylene Glycol 17 GM DAILY 02/19 1000 AC 02/19 PO 0941 Prednisone 50 MG DAILY 02/19 1000 AC 02/19 PO 0939 Senna/Docusate Sodium 2 TAB DAILY 02/19 1000 AC 02/19 PO 0940 Laboratory Tests 02/19 0610 Chemistry Sodium (137 - 145 mmol/L) 135 L Potassium (3.5 - 5.1 mmol/L) 4.1 Chloride (98 - 107 mmol/L) 96 L Carbon Dioxide (22 - 30 mmol/L) 33 H Anion Gap (5 - 16) 7 BUN (9 - 20 mg/dL) 25 H Creatinine (0.7 - 1.2 mg/dL) 1.0 Estimated GFR (>60 ml/min) > 60 BUN/Creatinine Ratio (7 - 25 %) 25.0 Microbiology Date/Time Procedure - Status Source Growth 02/17 0612 Influenza Virus A & B Rapid Smear - COMP NASOPHARYN Vital Signs & I&O Last 24 Hrs of Vitals and I&O: Vital Signs Date Time Temp Pulse Resp B/P Pulse O2 O2 Flow FiO2 Ox Delivery Rate 02/19 0938 73 128/70 02/19 0938 73 128/70 02/19 0937 73 12802/19 0915 97 Nasal 1.0L Cannula 02/19 0800 97 Nasal 1.0L Cannula 02/19 0600 98.1 73 20 128/70 95 Nasal 2.0L Cannula 02/19 0000 Nasal 2.0L Cannula 02/18 2334 98.7 84 20 118/70 94 Nasal 2.0L Cannula 02/18 2152 84 118/70 02/18 2105 96 Nasal 2.0L Cannula 02/18 1519 99.0 66 20 134/78 93 Intake & Output 02/19 1600 02/19 0800 02/19 0000 Intake Total 360 250 Output Total Balance 360 250 Intake, IV 10 Intake, Oral 360 240 Impression/Plan Impression/Plan Impression/Plan: Physical Exam Respiratory: mild wheezing with occ crackles Well-developed well-nourished person in no acute distress HEENT: Normal EENT exam, moist mucous membranes PERRLA bilaterally Neck: Supple, no lymphadenopathy Back: Normal gait. Normal inspection Cardiovascular: Regular rate and rhythm with no murmurs, rubs, or gallops. No JVD or carotid bruits Abdomen: Soft, nontender, and nondistended. No rebound or guarding. No organomegaly. No peritoneal signs Extremity: No edema, no calf tenderness to palpation, normal and equal pulses. Neuro: Alert oriented x3, cranial nerves II through XII grossly intact. Skin: No appreciable rash on exposed skin, skin is warm and dry. Psych: Mood and affect is normal IMPRESSION This is a gentleman with multiple medical problems with hypertension hyperlipidemia diabetes hypothyroidism BPH now comes in with * Cough wheezing shortness of breath suggestive of acute asthma exacerbation. Patient probably does have COPD as well. * He has mild hypoxemia on minimal exertion probably related to significant pulmonary hypertension and ongoing bronchospasm, with atx * Signs and symptoms suggestive of obstructive sleep apnea with active snoring at night with daytime sleepiness. Patient however is not a CO2 retainer * Diabetes, hypertension, hyperlipidemia and hypothyroidism on appropriate supplementation therapy * Trace edema lower extremity rule out other causes of hypoxemia. * Hyponatremia which appears to be new onset RECOMMENDATION Discontinue oxygen if able Discharge patient Prednisone 40 mg in a day for 3 more days Patient would require a nebulizer machine at home upon discharge DuoNeb 3 times a day upon discharge Azithromycin by mouth Patient would need an outpatient sleep study
[2017-02-19 14:05] VITALS: BP 128/70
[2017-02-19] MEDS ORDERED: PREDNISONE20 M1 PO (14:24)
[2017-02-19] MEDS ORDERED: PROVENTIL HFA6.7 GM INH (14:24)
[2017-02-19] MEDS ORDERED: SYMBICORT 16010.2 GM INH (14:24)
[2017-02-19] MEDS ORDERED: AZITHROMYCIN250 M1 PO (14:31)
[2017-02-19] MEDS ORDERED: IPRAT-ALBUT 0.5-3 ML INH (14:34)
--- NOTE | 2017-03-01 14:12 | Discharge Summary ---
Visit Information Visit Dates Admission Date: 02/16/17 Discharge Date: 02/19/17 Hospital Course Course Attending Physician: VALENTINA ESCOBEDO,KAYLYN Viveros Primary Care Physician: BELLA ESCOBEDO,[facility] Course: This is a gentleman with multiple medical problems with hypertension hyperlipidemia diabetes hypothyroidism BPH now comes in with * Cough wheezing shortness of breath suggestive of acute asthma exacerbation. Patient probably does have COPD as well. * He has mild hypoxemia on minimal exertion probably related to significant pulmonary hypertension and ongoing bronchospasm, with atx * Signs and symptoms suggestive of obstructive sleep apnea with active snoring at night with daytime sleepiness. Patient however is not a CO2 retainer * Diabetes, hypertension, hyperlipidemia and hypothyroidism on appropriate supplementation therapy * Trace edema lower extremity rule out other causes of hypoxemia. * Hyponatremia which appears to be new onset RECOMMENDATION upon dc Steroid taper, Neb prn Cont abx Patient would need an outpatient sleep study Allergies: Coded Allergies: No Known Allergies (02/28/16) Disposition Summary Disposition Principal Diagnosis: acute asthma Additional Diagnosis: Atelectasis Pulm htn Chronic hypercarbic resp failiure DM, Diabetes, hypertension, hyperlipidemia and hypothyroidism on appropriate supplementation therapy Trace edema lower extremity prob cor pulmnale Hyponatremia which appears to be new onset Discharge Disposition: home health services Discharge Instructions General Discharge Information Code Status: Full Code Patient's Diet: low fat Patient's Activity: as heather Follow-Up Instructions/Appts: PC[ Medications at Discharge Discharge Medications: Continue taking these medications: Lisinopril/Hydrochlorothiazide (Lisinopril-Hctz 20-25 MG Tab) 1 EACH TABLET 1 Tablet ORAL DAILY Qty = 90 Comments: Last Taken: 02/19/17 Time: 09 Levothyroxine Sodium (Levothyroxine Sodium) 125 MCG TABLET 1 Tablet ORAL DAILY Qty = 90 Comments: Last Taken: 02/19/17 Time: 0600 Lovastatin (Lovastatin) 40 MG TABLET 1 Tablet ORAL DAILY Qty = 90 Comments: LIPITOR GIVEN Last Taken: 02/19/17 Time: 0937 Omeprazole (Omeprazole) 40 MG CAPSULE.DR 1 Tablet ORAL DAILY Qty = 90 Comments: Last Taken: 02/19/17 Time: 0601 Amlodipine Besylate (Amlodipine Besylate) 10 MG TABLET 1 Tablet ORAL DAILY Qty = 90 Comments: Last Taken: 02/19/17 Time: 937 Carvedilol (Carvedilol) 6.25 MG TABLET 1 Tablet ORAL TWICE DAILY Qty = 180 Comments: Last Taken:02/19/17 Time:937 Aspirin (Ecotrin*) 81 MG TABLET.DR 1 Tablet ORAL DAILY Comments: Last Taken:02/19/17 Time: 37 Colesevelam Hydrochloride (Welchol) 625 MG TABLET 1 Tablet ORAL THREE TIMES DAILY Comments: Last Taken: 02/19/17 Time:1000 Metformin HCl (Metformin HCl) 500 MG TABLET 1 Tablet ORAL TWICE DAILY Qty = 60 Comments: Last Taken: NOT GIVEN Time: Albuterol Sulfate (Proair Hfa) 90 MCG HFA.AER.AD 2 Puff Inhale through mouth as needed for ASTHMA Mometasone/Formoterol (Dulera 100 Mcg/5 Mcg Inhaler) 100 MCG-5 MCG/ACTUATION HFA.AER.AD 2 Puff Inhale through mouth as needed for ASTHMA Comments: Last Taken: NOT GIVEN Time: Mometasone Furoate (Nasonex) 50 MCG SPRAY.PUMP 2 [place] Both sides of nose as needed for ALLERGIES/NASAL CONGESTION Qty = 17 Comments: Last Taken: NOT GIVEN Time: [place]-3 Fatty Acids ([place]-3) (Unknown Strength) CAPSULE Unknown Dose ORAL DAILY Comments: Last Taken: NOT GIVEN Time: Calcium Carbonate/Vitamin D3 (Calcium 500 + D Tablet) (Unknown Strength) TABLET Unknown Dose ORAL DAILY Comments: Last Taken:02/19/17 Time: 938 Lactobacillus Acidophilus (Probiotic) 10 BILLION CELL CAPSULE 1 Capsule ORAL DAILY Comments: Last Taken:02/19/17 Time:935 Ascorbic Acid (Vitamin C) 100 MG TABLET 0.5 Tablet ORAL DAILY Comments: Last Taken: NOT GIVEN Time: Start taking the following new medications: Prednisone (Prednisone) 20 MG TABLET 40 Milligram ORAL DAILY Qty = 6 No Refills Instructions: STARTING THIS MEDICAITON 02/20/17 TAKE TWO TABLETS BY MOUTH DAILY FOR 3 MORE DAYS THEN STOP Comments: Last Taken: 02/19/17 Time: 938 Azithromycin (Azithromycin) 250 MG TABLET 250 Milligram ORAL DAILY Qty = 1 No Refills Instructions: TAKE ONE TABLET ON 02/20/17 Comments: Last Taken: 02/19/17 Time: 937 Budesonide/Formoterol Fumarate (Symbicort 160-4.5 Mcg Inhaler) 160 MCG-4.5 MCG/ ACTUATION HFA.AER.AD 2 Puff Inhale through mouth TWICE DAILY Qty = 1 No Refills Comments: Last Taken: 02/19/17 Time: 0938 Albuterol Sulfate (Proventil Hfa) 90 MCG HFA.AER.AD 2 Puff Inhale through mouth Every 4 hours Qty = 1 No Refills Ipratropium/Albuterol Sulfate (Iprat-Albut 0.5-3(2.5) MG/3 Ml) 0.5 MG-3 MG (2.5 MG BASE)/3 ML AMPUL.NEB 2.5 [place] Inhale through mouth THREE TIMES DAILY Qty = 50 No Refills Copies To: VALENTINA ESCOBEDO,KAYLYN BLANCO MD,MULU
== END 2017-02-19 16:17 | disposition home health service (06) | DRG 202 ==
LOC: ENRESERV → ENRESERVDT → ENRESERVTM → ERH 15:03 → ERHI 18:57 → 2NA 18:57
PROVIDERS: Physician Assistant; ADMIT Internal Medicine
DX: J45.901 Unspecified asthma with (acute) exacerbation (principal); J44.1 Chronic obstructive pulmonary disease with (acute) exacerbation; E87.1 Hypo-osmolality and hyponatremia; E11.9 Type 2 diabetes mellitus without complications; I10 Essential (primary) hypertension; E03.9 Hypothyroidism, unspecified; N40.0 Benign prostatic hyperplasia without lower urinary tract symptoms; E78.5 Hyperlipidemia, unspecified; G47.33 Obstructive sleep apnea (adult) (pediatric); R09.02 Hypoxemia
CPT/HCPCS: 2NAP; 84133; 84300; 81001; 82436; 82570; 87804; 87804-59; 93005; 93010; J0456; J1650